=== PATIENT | male | born 1995 | race American Indian/Alaskan Native ===

== ENCOUNTER 2018-02-17 16:01 | Emergency (ER) | payer SELFPAY ==
[2018-02-17 16:01] VITALS: BMI 28.2
[2018-02-17 16:22] VITALS: BP 106/70; PULSE 88; RESP 18; TEMP 99.1; O2SAT 99
--- NOTE | 2018-02-17 16:53 | C.PDOC ---
History Of Present Illness 22 y/o male c/o 2 wk hx of penis and teste pain that radiates towards rectum, worse with erection. pt reports [place] was [place] [facility] [place] and had a testicular ultrasound that was negative. pt sts he was given a rx for antibiotics for hematuria., which he has not yet started. no f/u with urology. no ab pain,. no dysuria, no penile dischage. no fever or chills., no rectal pain. Time Seen by Provider: 02/17/18 16:39 Chief Complaint (Nursing): Male Genitourinary History Per: Patient History/Exam Limitations: no limitations Onset/Duration Of Symptoms: Days (14) Current Symptoms Are (Timing): Still Present Severity: Mild Quality Of Discomfort: Unable To Describe Associated Symptoms: denies: Fever, Chills, Nausea, Vomiting, Back Pain, Urinary Symptoms Past Medical History Reviewed: Historical Data, Nursing Documentation, Vital Signs Vital Signs: Last Vital Signs Temp 99.1 F 02/17/18 16:19 Pulse 88 02/17/18 16:19 Resp 18 02/17/18 16:19 BP 106/70 02/17/18 16:19 Pulse Ox 99 02/17/18 17:41 - Medical History PMH: No Chronic Diseases Denies: Depression Family History: States: Unknown Family Hx - Social History Hx Tobacco Use: Yes (2-3 per day) Hx Alcohol Use: Yes Hx Substance Use: Yes (every other day) Review Of Systems Constitutional: Negative for: Fever, Chills Gastrointestinal: Negative for: Abdominal Pain Genitourinary: Positive for: Penile Pain. Negative for: Dysuria, Frequency, Hematuria, Penile Discharge, Scrotal Pain Skin: Negative for: Rash Physical Exam - Physical Exam Appears: Non-toxic, No Acute Distress Skin: Warm, Dry Head: Atraumatic, Normacephalic Gastrointestinal/Abdominal: Bowel Sounds, Soft, No Tenderness, No Distention, No Guarding, No Rebound Male Genital: Normal Inspection, No Testicular Tenderness, No Testicular Swelling, No Inguinal Tenderness, No Inguinal Swelling, Circumcised, Other (no penile discharge noted. no swelling,redness or tenderness on exam of penis, testes or scrotum. chaperoned by NERISSA Chen. ) ED Course And Treatment O2 Sat by Pulse Oximetry: 99 Medical Decision Making Medical Decision Makin per rn, pt eloped approx 10 min ago. ua with [facility]. pt stated he had rx for antibiotic, not yet taken. message left for pt to take rx for antobitics that he already has or return to ed for new rx and to f/u with urology. Disposition Counseled Patient/Family Regarding: Studies Performed, Diagnosis, Need For Followup - Disposition Disposition: ELOPEMENT - ER ONLY Disposition Time: 17:30 Condition: STABLE Forms: [facility] ([place]), General Discharge Instructions - Clinical Impression Clinical Impression: Concern about male genital disease without diagnosis
[2018-02-17 17:29] LABS: URINE BILIRUBIN NEGATIVE (NEGATIVE); URINE CLARITY Clear (Clear); URINE COLOR YELLOW (YELLOW); URINE GLUCOSE (UA) NEGATIVE (Normal)
[2018-02-17 17:30] LABS: URINE BLOOD NEGATIVE (NEGATIVE); URINE LEUKOCYTE ESTERASE TRACE Leu/uL (Negative); URINE PROTEIN NEGATIVE (NEGATIVE)
[2018-02-17 17:31] LABS: SQUAMOUS EPITHIAL 3 /hpf (0-5); URINE BACTERIA RARE (<OCC)
== END 2018-02-17 16:39 | disposition left against medical advice (07) ==
LOC: C.ER 16:01
DX: Z71.1 Person with feared health complaint in whom no diagnosis is made (principal)